=== PATIENT | male | born 1955 | race Two or more races ===

== ENCOUNTER 2018-07-31 23:01 | Emergency (ER) | payer SELFPAY ==
[~2018-07-31] VITALS: Ht 167.6 cm; Wt 72.0 kg
[2018-07-31 23:10] VITALS: BP 144/82
== END 2018-08-01 00:22 | disposition left against medical advice (07) ==
LOC: ER 23:35
DX: Z53.21 Procedure and treatment not carried out due to patient leaving prior to being seen by health care provider (principal)